=== PATIENT | female | born 1995 | race Caucasian/White ===

== ENCOUNTER 2016-06-24 02:40 | Emergency (ER) | payer OTHER ==
[~2016-06-24] VITALS: Ht 170.2 cm; Wt 54.4 kg
[2016-06-24 03:27] VITALS: BP 147/98
[2016-06-24] MEDS ORDERED: SODIUM CHLORIDE 0.9% 1,000 ML IV ONE ×2 (03:45→03:50)
[2016-06-24] MEDS ORDERED: LORazepam 2MG/ML-1ML VIAL IV ONE (03:45)
[2016-06-24] MEDS ORDERED: diphenhdrAMINE HCL 50 MG/1 ML VL IV ONE (03:45)
[2016-06-24 04:45] LABS: Basophils # (auto) 0 uL; Basophils % (auto) 0.3 % (0.0-2.0); Eosinophils # (auto) 0.1 uL; Eosinophils % (auto) 1.5 % (0.0-7.0); Hematocrit 37.3 % (36.0-46.0); Hemoglobin 12.1 g/dL (12.2-16.2); Lymphocytes # (auto) 1.7 uL; Lymphocytes % (auto) 26.1 % (10.0-50.0); Mean Corpuscular Hemoglobin 28.3 pg (28.0-32.0); Mean Corpuscular Hgb Conc. 32.5 g/dL (32.0-36.0); Mean Corpuscular Volume 87.1 fL (80.0-100.0); Mean Platelet Volume 11.6 fL (7.4-10.4); Monocytes # (auto) 0.5 uL; Monocytes % (auto) 8.2 % (0.0-12.0); Neutrophils # (auto) 4.1 uL; Neutrophils % (auto) 63.9 % (37.0-80.0); Platelet Count (auto) 226 10^3/uL (140-450); Red Cell Distribution Width 12.8 % (11.6-16.0); White Blood Cell 6.4 10^3/uL (4.4-10.8)
[2016-06-24 05:00] LABS: INR 0.99 (0.9-1.15); Prothrombin Time 10.2 sec (9.37-12.3)
[2016-06-24 05:04] LABS: Albumin 3.8 g/dL (3.4-5.0); BUN/Creatinine Ratio 12.1; Bilirubin, Total 0.4 mg/dL (0.2-1.0); Calcium 8.8 mg/dL (8.5-10.1); Potassium 3.5 mmol/L (3.5-5.1); Total Protein 7.1 g/dL (6.4-8.2)
[2016-06-24 05:50] LABS: Urine RBC None Seen /hpf (0 - 4)
[2016-06-24 06:01] LABS: Urine Bilirubin Negative (Negative); Urine Blood Negative /uL (Negative); Urine Color Yellow (Yellow); Urine Glucose Normal (Normal); Urine Ketone Negative (Negative); Urine Mucus FEW (None Seen); Urine Nitrite Negative (Negative); Urine Urobilinogen Normal (Negative); Urine pH 6.5 (5.0-8.0)
== END 2016-06-24 06:13 | disposition home or self-care (01) ==
LOC: ER 02:42
DX: F41.9 Anxiety disorder, unspecified (principal); N39.0 Urinary tract infection, site not specified; Z87.442 Personal history of urinary calculi; E07.9 Disorder of thyroid, unspecified
CPT/HCPCS: 36415; 70450; 71010; 80053; 81001; 84484; 85025; 85049; 85610; 85730; 93005; 96361; 96374; 96375; 99285; J1200; J2060; J7030